=== PATIENT | female | born 1940 | race Caucasian/White ===

== ENCOUNTER 2017-10-24 10:14 | Outpatient (CLI) | payer MEDICARE, OTHER | END 2017-10-24 10:15 | disposition home or self-care (01) | LOC: BICMAMMO 10:14 | PROVIDERS: ATTEND Internal Medicine Hematology & Oncology | DX: Z12.31 Encounter for screening mammogram for malignant neoplasm of breast (principal); Z85.3 Personal history of malignant neoplasm of breast | CPT/HCPCS: 77063; 77067 ==

== ENCOUNTER 2018-07-05 08:56 | Day surgery (SDC) | payer MEDICARE, OTHER ==
[2018-07-04 11:30] VITALS: BMI 39.1
[2018-07-05] MEDS ORDERED: Ketamine 50 MG/ML (10ML VIAL) ONE (09:03)
[2018-07-05 09:41] LABS: #Eosinphils 0.2 thou/uL (0.0-0.7); #Lymphocytes 1.5 thou/uL (1.20-3.40); #Monocytes 0.5 thou/uL (0.11-0.59); #Neutrophils 2.5 thou/uL (1.40-6.50); %Basophils 0.8 % (0.0-1.0); %Monocytes 10.7 % (0.0-10.0); %Neutrophils 53.6 % (42.0-75.0); Hemoglobin 13.8 g/dL (12.0-16.0); Mean Corpuscular HGB CONC 32.8 g/dL (32.0-36.0); Mean Corpuscular Hemoglobin 31.2 pg (27.0-31.0); Mean Corpuscular Volume 95.1 fL (78.0-98.0); Mean Platelet Volume 7.5 fL (7.4-10.4); Platelet Count 208 thou/uL (130-400); RBC Distribution Width 13.7 % (11.5-14.5); Red Blood Cell (RBC) Count 4.42 mill/uL (4.20-5.40); White Blood Cell (WBC) Count 4.7 thou/uL (4.8-10.8)
[2018-07-05 10:01] LABS: Anion Gap 12 mmol/L (10-20); BUN (Urea Nitrogen) 26 mg/dL (9.8-20.1); Calc. Creatinine Clearance 45 mL/min (70-130); Calcium 9.5 mg/dL (7.8-10.44); Carbon Dioxide 29 mmol/L (23-31); Chloride 98 mmol/L (98-107); Estimated GFR-MDRD 26; Glucose 111 mg/dL (83-110); Sodium 135 mmol/L (136-145)
[2018-07-05] MEDS ORDERED: PROPOFOL 200 MG/20 ML VIAL ONE (16:17)
--- NOTE | 2018-07-06 07:34 | ECHO ---
CARDIOLOGY PROCEDURE NOTE: Date: 07/05/18 PROCEDURE: Transesophageal echocardiogram. INDICATION FOR PROCEDURE: 78-year-old female with history of cardiomyopathy. Status post AICD implant. She has been followed on a routine basis. She also has paroxysmal atrial fibrillation. She has been placed on amiodarone and Xarelto. She was advised to undergo a transesophageal echocardiogram, as well as electrical cardiover akhil of her atrial fibrillation. DESCRIPTION OF PROCEDURE: The patient was taken to the recovery area, where she underwent the procedure today without difficult ies or complications. IMPRESSION: 1. Moderate decreased in LV systolic function. Ejection fraction 35-40%. 2. Left atrial dilatation. 3. No evidence of left atrial or left atrial appendage thrombus. 4. Mild to moderate mitral valve regurgitation. 5. Mild tricuspid valve regurgitation. 6. Structurally normal aortic valve. 7. Pacemaker leads noted in right chambers without evidence of thrombus.
--- NOTE | 2018-07-06 07:35 | OP ---
ELECTRICAL CARDIOVERSION: Date: 07/05/18 The patient was electrically cardioverted successfully from her atrial fibrillation back to sinus rhy th with atrial pacing and ventricular pacing. She was cardioverted through the device with 35 joules . There were no complications or difficulties encountered. She was given short-acting propofol for th e procedure and no difficulties or complications were encountered.
--- NOTE | 2018-07-06 07:44 | DIS ---
ADMITTING DIAGNOSIS: 1. Atrial fibrillation. 2. Cardiomyopathy. 3. Status post AICD implant. 4. Hypertension. 5. Diabetes. DISCHARGE DIAGNOSIS: 1. Atrial fibrillation. 2. Cardiomyopathy. 3. Status post AICD implant. 4. Hypertension. 5. Diabetes. 6. Underwent successful transesophageal echocardiogram and electrical cardioversion of her atrial fi brillation back to a sinus rhythm. DISCHARGE MEDICATIONS: Aspirin 81 mg q.d. Coreg 25 mg bid. Lasix as needed, 40 mg q.d. Levothyroxine 75 mcg q.d. Lisinopril 5 mg q.d. Potassium 20 mEq q.d. Xarelto 20 mg q.d. Spironolactone 12.5 mg q.d. Amiodarone 100 mg q.d. Her follow-up will be with tube coremaker as per their orders. I will also see her back in the [facility] in the next 1-2 months. SUMMARY: This unfortunate elderly female with a history of cardiomyopathy and undergone AICD implant in the [facility], presented to [facility] and was found to have atrial fibrillation with congestive heart failure symptoms. She was advised to undergo a transesophageal echocardiogram and if no evidence of t hrombus, be converted from her atrial fibrillation back to sinus rhythm. Due to her history of shortn ess of breath and congestive heart failure symptoms and decreasing ejection fraction during the proce dure today, she was found to have moderately dilated left atrial of more than 5 cm today but had good flow into the left atrial fibrillation. There was no left atrial or left atrial appendage thrombus a nd ejection fraction was about 35-40%. She underwent successful cardioversion after a JAYSON with 35 isiah les via the AICD device. There were no complications or difficulties encountered. We will see her annabelle k as noted above.
== END 2018-07-05 11:00 | disposition home or self-care (01) ==
LOC: CCL 08:56
PROVIDERS: ATTEND Internal Medicine Cardiovascular Disease
PROC: 5A2204Z Restoration of Cardiac Rhythm, Single (ICD-10-PCS; principal; 2018-07-05)
PROC: B24BZZ4 Ultrasonography of Heart with Aorta, Transesophageal (ICD-10-PCS; 2018-07-05)
DX: I48.0 Paroxysmal atrial fibrillation (principal); I42.8 Other cardiomyopathies; I11.0 Hypertensive heart disease with heart failure; I50.20 Unspecified systolic (congestive) heart failure; E03.9 Hypothyroidism, unspecified; E11.9 Type 2 diabetes mellitus without complications; I08.1 Rheumatic disorders of both mitral and tricuspid valves; Z79.82 Long term (current) use of aspirin; Z79.899 Other long term (current) drug therapy; Z91.048 Other nonmedicinal substance allergy status; Z88.7 Allergy status to serum and vaccine; Z95.810 Presence of automatic (implantable) cardiac defibrillator; Z79.01 Long term (current) use of anticoagulants
CPT/HCPCS: 80048; 85025; 92960; 93312; J2704

== ENCOUNTER 2019-01-11 08:54 | Outpatient (CLI) | payer MEDICARE, OTHER ==
--- NOTE | 2019-01-11 09:29 | MMO ---
Bilateral MAMMO Bilat Screen [facility]. CLINICAL HISTORY: Patient is 78 years old and is seen for screening. The patient has no family history of breast cancer. The patient has a history of left Excisional Biopsy in 2009 - benign - Removed milk duct in his office, right Mastectomy in January, and right Ultrasound Guided Core Biopsy in August, - malignant. VIEWS: The views performed were: left craniocaudal with tomosynthesis and left mediolateral oblique with tomosynthesis. FILMS COMPARED: The present examination has been compared to prior imaging studies performed at [facility] on 01/03/2014, 01/11/2015, 09/02/2016 and 10/24/2017. This study has been interpreted with the assistance of computer-aided detection. MAMMOGRAM FINDINGS: There are scattered fibroglandular densities. There is a stable intramammary lymph node seen in the left breast. There are no suspicious masses, calcifications or areas of architectural distortion. There are no suspicious masses, suspicious calcifications, or new areas of architectural distortion. IMPRESSION: THERE IS NO MAMMOGRAPHIC EVIDENCE OF MALIGNANCY. A ROUTINE FOLLOW-UP MAMMOGRAM IN 1 YEAR IS RECOMMENDED. THE RESULTS OF THIS EXAM WERE SENT TO THE PATIENT. ACR BI-RADS Category 2 - Benign finding MAMMOGRAPHY NOTE: 1. A negative mammogram report should not delay a biopsy if a dominant of clinically suspicious mass is present. 2. Approximately 10% to 15% of breast cancers are not detected by mammography. 3. Adenosis and dense breasts may obscure an underlying neoplasm. Reported by: DANDRE TOLLIVER MD Electonically Signed: [id number]
== END 2019-01-11 08:55 | disposition home or self-care (01) ==
LOC: BICMAMMO 08:54
PROVIDERS: ATTEND Internal Medicine Hematology & Oncology
DX: Z12.31 Encounter for screening mammogram for malignant neoplasm of breast (principal); Z91.89 Other specified personal risk factors, not elsewhere classified; Z90.11 Acquired absence of right breast and nipple
CPT/HCPCS: 77063; 77067

== ENCOUNTER 2019-10-24 07:34 | Outpatient (CLI) | payer MEDICARE, OTHER ==
[2019-10-24 14:17] LABS: #Eosinphils 0.2 thou/uL (0.0-0.7); #Lymphocytes 1.1 thou/uL (1.20-3.40); #Monocytes 0.4 thou/uL (0.11-0.59); #Neutrophils 2.4 thou/uL (1.40-6.50); %Monocytes 9.6 % (0.0-10.0); %Neutrophils 59.4 % (42.0-75.0); Hemoglobin 9.7 g/dL (12.0-16.0); Mean Corpuscular HGB CONC 30.4 g/dL (32.0-36.0); Mean Corpuscular Volume 75.7 fL (78.0-98.0); Mean Platelet Volume 8.4 fL (7.4-10.4); Platelet Count 283 thou/uL (130-400); RBC Distribution Width 17.3 % (11.5-14.5); Red Blood Cell (RBC) Count 4.23 mill/uL (4.20-5.40)
[2019-10-24 14:27] LABS: INR-International Normal Ratio 2.7; PTT 32.9 sec (22.9-36.1); Prothrombin Time 28.7 sec (12.0-14.7)
[2019-10-24 14:43] LABS: Anion Gap 11 mmol/L (10-20); BUN (Urea Nitrogen) 24 mg/dL (9.8-20.1); Calc. Creatinine Clearance 0 mL/min (70-130); Calcium 8.7 mg/dL (7.8-10.44); Carbon Dioxide 29 mmol/L (23-31); Chloride 101 mmol/L (98-107); Estimated GFR-MDRD 34; Glucose 119 mg/dL (83-110); Potassium 3.7 mmol/L (3.5-5.1); Sodium 137 mmol/L (136-145)
[2019-10-25 13:34] LABS: SARS-CoV-2 MS2 Positive; SARS-CoV-2 N Gene Negative; SARS-CoV-2 S Gene Negative; SARS-CoV-2 by NAA Not Detected (NotDetected); SARS-CoV-2 orf1ab Negative
== END 2019-10-24 07:35 | disposition home or self-care (01) ==
LOC: LABBT 07:34
PROVIDERS: ATTEND Internal Medicine
DX: Z01.812 Encounter for preprocedural laboratory examination (principal); Z11.59 Encounter for screening for other viral diseases; I48.0 Paroxysmal atrial fibrillation
CPT/HCPCS: 80048; 85025; 85610; 85730; U0003; 87635

== ENCOUNTER 2021-10-16 13:17 | Outpatient (CLI) | payer MEDICARE, OTHER ==
[2021-10-16 14:50] LABS: Hemoglobin 12.9 g/dL (12.0-15.5); Mean Corpuscular HGB CONC 32.7 g/dL (32.0-36.0); Mean Corpuscular Hemoglobin 29.1 pg (27.0-33.0); Mean Corpuscular Volume 88.9 fl (81.6-98.3); Mean Platelet Volume 10.3 fl (7.4-10.4); Platelet Count 219 10x3/uL (150-450); RBC Distribution Width 15.9 % (11.5-14.5); Red Blood Cell (RBC) Count 4.43 10x6/uL (3.90-5.03)
[2021-10-16 15:26] LABS: Anion Gap 17 mmol/L (10-20); BUN (Urea Nitrogen) 18 mg/dL (9.8-20.1); Calc. Creatinine Clearance 0 mL/min (70-130); Calcium 8.9 mg/dL (7.8-10.44); Carbon Dioxide 26 mmol/L (23-31); Chloride 104 mmol/L (98-107); Estimated GFR 35; Glucose 110 mg/dL (83-110); Potassium 3.8 mmol/L (3.5-5.1); Sodium 143 mmol/L (136-145)
[2021-10-16 15:30] LABS: INR-International Normal Ratio 2.2; PTT 32.4 sec (22.0-33.0); Prothrombin Time 23.2 sec (9.5-12.1)
== END 2021-10-16 13:18 | disposition home or self-care (01) ==
LOC: LABBT 13:17
PROVIDERS: ATTEND Internal Medicine Cardiovascular Disease
DX: Z01.812 Encounter for preprocedural laboratory examination (principal); I48.0 Paroxysmal atrial fibrillation; Z20.822 Contact with and (suspected) exposure to COVID-19
CPT/HCPCS: 80048; 85027; 85610; 85730; 87811

== ENCOUNTER 2021-10-21 10:44 | Day surgery (SDC) | payer MEDICARE, OTHER ==
[2021-10-20 09:02] VITALS: BMI 29.1
[2021-10-21] MEDS ORDERED: Ketamine 50 MG/ML (10ML VIAL) ONE (13:13)
[2021-10-21] MEDS ORDERED: PROPOFOL 200 MG/20 ML VIAL ONE (13:27)
[2021-10-21] MEDS ORDERED: Hydrocortisone 1% Cream 30 GM TUBE ONE (14:12)
== END 2021-10-21 15:00 | disposition home or self-care (01) ==
LOC: SDC 10:44
PROVIDERS: ATTEND Internal Medicine Cardiovascular Disease
PROC: B246ZZ4 Ultrasonography of Right and Left Heart, Transesophageal (ICD-10-PCS; principal; 2021-10-21)
PROC: 5A2204Z Restoration of Cardiac Rhythm, Single (ICD-10-PCS; 2021-10-21)
DX: I48.19 Other persistent atrial fibrillation (principal); I50.9 Heart failure, unspecified; I25.5 Ischemic cardiomyopathy; I08.1 Rheumatic disorders of both mitral and tricuspid valves; I70.0 Atherosclerosis of aorta; Z79.01 Long term (current) use of anticoagulants; Z79.890 Hormone replacement therapy; Z79.899 Other long term (current) drug therapy; Z95.1 Presence of aortocoronary bypass graft; Z95.810 Presence of automatic (implantable) cardiac defibrillator
CPT/HCPCS: 92960; 93312; J2704

== ENCOUNTER 2023-03-03 14:29 | Outpatient (CLI) | payer MEDICARE, OTHER | END 2023-03-03 14:30 | disposition home or self-care (01) | LOC: RAD 14:29 | PROVIDERS: ATTEND Internal Medicine Cardiovascular Disease | DX: I48.0 Paroxysmal atrial fibrillation (principal) | CPT/HCPCS: 36415; 71046; 85610 ==

== ENCOUNTER 2024-10-14 10:53 | Inpatient (IN) | payer MEDICARE, OTHER ==
[2024-10-14 11:51] LABS: #Basophils 0.10 10x3/uL (0.0-0.2); #Eosinophils 0.10 10x3/uL (0.0-0.7); #Monocytes 0.63 10x3/uL (0.11-0.59); #Neutrophils 8.96 10x3/uL (1.40-6.50); %Basophils 0.9 % (0.0-1.0); %Eosinophils 0.9 % (0.0-10.0); %Lymphocytes 8.6 % (21.0-51.0); %Monocytes 5.8 % (0.0-10.0); %Neutrophils 82.2 % (42.0-75.0); Hematocrit 44.8 % (36.0-47.0); Hemoglobin 14.7 g/dL (12.0-16.0); Mean Corpuscular Hemoglobin 32.0 pg (27.0-31.0); Mean Corpuscular Volume 97.6 fL (78.0-98.0); Platelet Count 409 10x3/uL (130-400); Red Blood Cell (RBC) Count 4.59 mill/uL (4.20-5.40); White Blood Cell (WBC) Count 10.91 10x3/uL (4.8-10.8)
[2024-10-14 12:09] LABS: ALT (SGPT) 78 U/L (Less than 34); AST (SGOT) 132 U/L (11-34); Albumin 2.3 g/dL (3.1-4.5); Alkaline Phosphatase 79 U/L (40-110); Anion Gap 14 mmol/L (10-20); BUN (Urea Nitrogen) 22 mg/dL (9.8-20.1); Bilirubin, Total 1.6 mg/dL (0.3-1.2); Calc. Creatinine Clearance 0 mL/min (70-130); Calcium 7.9 mg/dL (7.8-10.44); Carbon Dioxide 20 mmol/L (23-31); Chloride 107 mmol/L (98-107); Globulin 3.5 g/dL (2.4-3.5); Glucose 170 mg/dL (83-110); Lipase 68 U/L (8-78); Magnesium 1.9 mg/dL (1.6-2.6); Potassium 4.7 mmol/L (3.5-5.1); Sodium 136 mmol/L (136-145)
[2024-10-14 13:12] LABS: Free T4 (Free Thyroxine) 1.16 ng/dL (0.70-1.48)
[2024-10-14 13:19] LABS: CAUTI Indications for Culture Pelvic or flank pain; Glucose, Urine (Dipstick) Normal (Negative); Leukocyte Negative Leu/uL (Negative); Protein, Urine (Dipstick) Negative (Neg-Trace); RBC/HPF 0-3 HPF (0-3); Specific Gravity, Urine 1.010 (1.002-1.036); WBC/HPF 0-3 HPF (0-3)
[2024-10-14 13:20] LABS: Bacteria/HPF 1+ HPF (None Seen)
[2024-10-14 13:21] LABS: Urine Culture Reflex No No
[2024-10-14] MEDS ORDERED: levETIRAcetam 500 MG (5 mL) VIAL ONE (14:08)
[2024-10-14] MEDS ORDERED: Glucagon 1 MG/ML KIT IM PRN (16:13)
[2024-10-14] MEDS ORDERED: Dextrose 50% Abboject 50 ML SYRINGE SLOW IVP PRN (16:13)
[2024-10-14] MEDS: levETIRAcetam 500 MG (5 mL) VIAL SLOW IVP SCH (20:32)
[2024-10-14] MEDS: Sacubitril 24MG/Valsartan 26 MG TAB PO SCH (20:33)
[2024-10-14 22:18] VITALS: BMI 27.9
[2024-10-15] MEDS: Enoxaparin 40 MG (0.4 mL) SYRINGE SC SCH (08:47)
[2024-10-15] MEDS ORDERED: levETIRAcetam 500 MG TAB PO SCH (09:00)
[2024-10-15 09:07] LABS: ALT (SGPT) 70 U/L (Less than 34); AST (SGOT) 104 U/L (11-34); Albumin 2.3 g/dL (3.1-4.5); Alkaline Phosphatase 80 U/L (40-110); Anion Gap 14 mmol/L (10-20); BUN (Urea Nitrogen) 16 mg/dL (9.8-20.1); Bilirubin, Total 1.7 mg/dL (0.3-1.2); Calc. Creatinine Clearance 63 mL/min (70-130); Calcium 8.0 mg/dL (7.8-10.44); Carbon Dioxide 20 mmol/L (23-31); Chloride 108 mmol/L (98-107); Globulin 3.6 g/dL (2.4-3.5); Glucose 79 mg/dL (83-110); Potassium 4.6 mmol/L (3.5-5.1); Sodium 137 mmol/L (136-145)
[2024-10-15] MEDS: Aspirin 81 mg Enteric Coated Tablet PO SCH (09:07)
[2024-10-15] MEDS: MULTIVIT/IRON SULF/FOLIC ACID 1 EACH TAB PO SCH (09:07)
[2024-10-15] MEDS: Amiodarone 200 MG TAB PO SCH (09:07)
[2024-10-15] MEDS: Pantoprazole 40 MG DR.TAB PO SCH (09:08)
[2024-10-15 09:19] LABS: Hematocrit 46.1 % (36.0-47.0); Hemoglobin 14.8 g/dL (12.0-16.0); Mean Corpuscular Hemoglobin 31.4 pg (27.0-31.0); Mean Corpuscular Volume 97.9 fL (78.0-98.0); Platelet Count 303 10x3/uL (130-400); Red Blood Cell (RBC) Count 4.71 mill/uL (4.20-5.40); White Blood Cell (WBC) Count 7.38 10x3/uL (4.8-10.8)
[2024-10-15 09:42] LABS: #Basophils 0.10 10x3/uL (0.0-0.2); #Eosinophils 0.18 10x3/uL (0.0-0.7); #Monocytes 0.65 10x3/uL (0.11-0.59); #Neutrophils 5.38 10x3/uL (1.40-6.50); %Basophils 1.4 % (0.0-1.0); %Eosinophils 2.4 % (0.0-10.0); %Lymphocytes 13.7 % (21.0-51.0); %Monocytes 8.8 % (0.0-10.0); %Neutrophils 72.9 % (42.0-75.0)
[2024-10-15 09:57] LABS: Anisocytosis SLIGHT = 6-15 cells HPF (0-5); Burr Cells MODERATE= 6-15 cells HPF (0-1); Giant Platelets 0.9 % (0-5); Platelet Adequacy Comment Platelets Normal; Polychromasia SLIGHT = 2-3 cells HPF (0-2); Smudge Cells 4.3 %; Toxic Granulation SLIGHT
[2024-10-16 04:23] LABS: #Basophils 0.09 10x3/uL (0.0-0.2); #Eosinophils 0.13 10x3/uL (0.0-0.7); #Monocytes 0.71 10x3/uL (0.11-0.59); #Neutrophils 4.06 10x3/uL (1.40-6.50); %Basophils 1.5 % (0.0-1.0); %Eosinophils 2.1 % (0.0-10.0); %Lymphocytes 18.3 % (21.0-51.0); %Monocytes 11.5 % (0.0-10.0); %Neutrophils 65.6 % (42.0-75.0); Hematocrit 39.9 % (36.0-47.0); Hemoglobin 13.0 g/dL (12.0-16.0); Mean Corpuscular Hemoglobin 31.5 pg (27.0-31.0); Mean Corpuscular Volume 96.6 fL (78.0-98.0); Platelet Count 359 10x3/uL (130-400); Red Blood Cell (RBC) Count 4.13 mill/uL (4.20-5.40); White Blood Cell (WBC) Count 6.18 10x3/uL (4.8-10.8)
[2024-10-16 05:16] LABS: ALT (SGPT) 59 U/L (Less than 34); AST (SGOT) 98 U/L (11-34); Albumin 1.9 g/dL (3.1-4.5); Alkaline Phosphatase 68 U/L (40-110); Anion Gap 11 mmol/L (10-20); BUN (Urea Nitrogen) 15 mg/dL (9.8-20.1); Bilirubin, Total 1.4 mg/dL (0.3-1.2); Calc. Creatinine Clearance 71 mL/min (70-130); Calcium 7.9 mg/dL (7.8-10.44); Carbon Dioxide 17 mmol/L (23-31); Chloride 112 mmol/L (98-107); Globulin 3.0 g/dL (2.4-3.5); Glucose 73 mg/dL (83-110); Potassium 4.0 mmol/L (3.5-5.1); Sodium 136 mmol/L (136-145)
[2024-10-16] MEDS ORDERED: Bupivacaine 0.25% HCL 30 ML VIAL ONE (11:49)
[2024-10-16] MEDS ORDERED: Lidocaine 1% PF 5 ML VIAL ONE (12:25)
[2024-10-16] MEDS ORDERED: PROPOFOL 20 ML ONE (12:25)
[2024-10-16] MEDS ORDERED: Rocuronium Bromide 10 MG/ML (10ML VIAL) ONE (12:38)
[2024-10-16] MEDS ORDERED: PHENYLEPHRINE-NS 100 MCG/ML 10 ML SYRINGE ONE (13:16)
[2024-10-16] MEDS ORDERED: Ondansetron PF 4 MG/2 ML Vial ONE (13:35)
[2024-10-16] MEDS ORDERED: SUGAMMADEX SODIUM 200 MG/2 ML VIAL ONE (13:52)
[2024-10-16] MEDS: levETIRAcetam 500 MG TAB PO SCH (21:32)
[2024-10-17 07:04] LABS: #Basophils Less than 0.03 10x3/uL (0.0-0.2); #Eosinophils Less than 0.03 10x3/uL (0.0-0.7); #Monocytes 0.17 10x3/uL (0.11-0.59); #Neutrophils 7.52 10x3/uL (1.40-6.50); %Basophils 0.1 % (0.0-1.0); %Eosinophils 0.0 % (0.0-10.0); %Lymphocytes 8.5 % (21.0-51.0); %Monocytes 2.0 % (0.0-10.0); %Neutrophils 88.6 % (42.0-75.0); Hematocrit 42.1 % (36.0-47.0); Hemoglobin 13.7 g/dL (12.0-16.0); Mean Corpuscular Hemoglobin 31.6 pg (27.0-31.0); Mean Corpuscular Volume 97.0 fL (78.0-98.0); Platelet Count 395 10x3/uL (130-400); Red Blood Cell (RBC) Count 4.34 mill/uL (4.20-5.40); White Blood Cell (WBC) Count 8.49 10x3/uL (4.8-10.8)
[2024-10-17 07:13] LABS: ALT (SGPT) 73 U/L (Less than 34); AST (SGOT) 121 U/L (11-34); Albumin 2.1 g/dL (3.1-4.5); Alkaline Phosphatase 83 U/L (40-110); Anion Gap 14 mmol/L (10-20); BUN (Urea Nitrogen) 17 mg/dL (9.8-20.1); Bilirubin, Total 1.3 mg/dL (0.3-1.2); Calc. Creatinine Clearance 77 mL/min (70-130); Calcium 7.9 mg/dL (7.8-10.44); Carbon Dioxide 17 mmol/L (23-31); Chloride 109 mmol/L (98-107); Globulin 3.2 g/dL (2.4-3.5); Glucose 136 mg/dL (83-110); Potassium 4.5 mmol/L (3.5-5.1); Sodium 135 mmol/L (136-145)
[2024-10-17] MEDS: Enoxaparin 40 MG (0.4 mL) SYRINGE SC SCH (09:59)
[2024-10-17 11:23] LABS: Hep A IgM AB NONREACTIVE (NonReactive); Hep A IgM S/CO 0.13 S/CO (0-0.79); Hep B Core IgM Index 0.09 S/CO (0-0.79); Hep B Surf Ag NONREACTIVE S/CO (NonReactive); Hep C IgG Ab NONREACTIVE S/CO (NonReactive); Hep C Index 0.13 S/CO (0-0.79)
[2024-10-17] MEDS ORDERED: BENZOCAINE/MENTHOL/ZINC CHLOR 5.1 GM TUBE TOP PRN (12:52)
[2024-10-17] MEDS: MAGIC MOUTHWASH 10 ML UDCUP SSP SCH ×2 (13:46)
[2024-10-18 04:37] LABS: #Basophils 0.04 10x3/uL (0.0-0.2); #Eosinophils 0.05 10x3/uL (0.0-0.7); #Monocytes 0.57 10x3/uL (0.11-0.59); #Neutrophils 4.53 10x3/uL (1.40-6.50); %Basophils 0.6 % (0.0-1.0); %Eosinophils 0.8 % (0.0-10.0); %Lymphocytes 17.6 % (21.0-51.0); %Monocytes 9.0 % (0.0-10.0); %Neutrophils 71.2 % (42.0-75.0); Hematocrit 43.9 % (36.0-47.0); Hemoglobin 14.1 g/dL (12.0-16.0); Mean Corpuscular Hemoglobin 31.4 pg (27.0-31.0); Mean Corpuscular Volume 97.8 fL (78.0-98.0); Platelet Count 429 10x3/uL (130-400); Red Blood Cell (RBC) Count 4.49 mill/uL (4.20-5.40); White Blood Cell (WBC) Count 6.36 10x3/uL (4.8-10.8)
[2024-10-18 04:53] LABS: ALT (SGPT) 81 U/L (Less than 34); AST (SGOT) 141 U/L (11-34); Albumin 2.2 g/dL (3.1-4.5); Alkaline Phosphatase 87 U/L (40-110); Anion Gap 13 mmol/L (10-20); BUN (Urea Nitrogen) 24 mg/dL (9.8-20.1); Bilirubin, Total 1.4 mg/dL (0.3-1.2); Calc. Creatinine Clearance 64 mL/min (70-130); Calcium 8.2 mg/dL (7.8-10.44); Carbon Dioxide 21 mmol/L (23-31); Chloride 107 mmol/L (98-107); Globulin 3.4 g/dL (2.4-3.5); Glucose 95 mg/dL (83-110); Potassium 4.0 mmol/L (3.5-5.1); Sodium 137 mmol/L (136-145)
[2024-10-18 13:40] LABS: HIV (1/2) Antibody/Antigen NONREACTIVE (NonReactive); HIV 1/2 INDEX 0.07 S/CO (<1.00)
[2024-10-18 14:10] LABS: Iron 61 ug/dL (50-170); Iron Binding Capacity, Total 170 mcg/dL (265-497)
[2024-10-18 15:18] LABS: Syphilis Antibody Index 0.11 S/CO (<1.00 Non-Reactive)
[2024-10-19 04:13] LABS: #Basophils 0.09 10x3/uL (0.0-0.2); #Eosinophils 0.12 10x3/uL (0.0-0.7); #Monocytes 0.63 10x3/uL (0.11-0.59); #Neutrophils 3.72 10x3/uL (1.40-6.50); %Basophils 1.5 % (0.0-1.0); %Eosinophils 2.0 % (0.0-10.0); %Lymphocytes 23.0 % (21.0-51.0); %Monocytes 10.5 % (0.0-10.0); %Neutrophils 62.2 % (42.0-75.0); Hematocrit 45.0 % (36.0-47.0); Hemoglobin 14.3 g/dL (12.0-16.0); Mean Corpuscular Hemoglobin 31.4 pg (27.0-31.0); Mean Corpuscular Volume 98.7 fL (78.0-98.0); Platelet Count 375 10x3/uL (130-400); Red Blood Cell (RBC) Count 4.56 mill/uL (4.20-5.40); White Blood Cell (WBC) Count 5.99 10x3/uL (4.8-10.8)
[2024-10-19 04:29] LABS: ALT (SGPT) 79 U/L (Less than 34); AST (SGOT) 114 U/L (11-34); Albumin 2.3 g/dL (3.1-4.5); Alkaline Phosphatase 93 U/L (40-110); Anion Gap 13 mmol/L (10-20); BUN (Urea Nitrogen) 16 mg/dL (9.8-20.1); Bilirubin, Total 1.4 mg/dL (0.3-1.2); Calc. Creatinine Clearance 68 mL/min (70-130); Calcium 8.2 mg/dL (7.8-10.44); Carbon Dioxide 20 mmol/L (23-31); Chloride 106 mmol/L (98-107); Globulin 3.4 g/dL (2.4-3.5); Glucose 81 mg/dL (83-110); Potassium 3.5 mmol/L (3.5-5.1); Sodium 135 mmol/L (136-145)
[2024-10-19] MEDS: Cephalexin 250 MG CAP PO SCH (17:28)
[2024-10-20 04:11] LABS: #Basophils 0.09 10x3/uL (0.0-0.2); #Eosinophils 0.12 10x3/uL (0.0-0.7); #Monocytes 0.55 10x3/uL (0.11-0.59); #Neutrophils 2.61 10x3/uL (1.40-6.50); %Basophils 2.0 % (0.0-1.0); %Eosinophils 2.7 % (0.0-10.0); %Lymphocytes 22.4 % (21.0-51.0); %Monocytes 12.5 % (0.0-10.0); %Neutrophils 59.3 % (42.0-75.0); Hematocrit 42.9 % (36.0-47.0); Hemoglobin 14.2 g/dL (12.0-16.0); Mean Corpuscular Hemoglobin 31.3 pg (27.0-31.0); Mean Corpuscular Volume 94.7 fL (78.0-98.0); Platelet Count 338 10x3/uL (130-400); Red Blood Cell (RBC) Count 4.53 mill/uL (4.20-5.40); White Blood Cell (WBC) Count 4.41 10x3/uL (4.8-10.8)
[2024-10-20 04:31] LABS: ALT (SGPT) 72 U/L (Less than 34); AST (SGOT) 101 U/L (11-34); Albumin 2.2 g/dL (3.1-4.5); Alkaline Phosphatase 90 U/L (40-110); Anion Gap 13 mmol/L (10-20); BUN (Urea Nitrogen) 11 mg/dL (9.8-20.1); Bilirubin, Total 1.3 mg/dL (0.3-1.2); Calc. Creatinine Clearance 89 mL/min (70-130); Calcium 8.2 mg/dL (7.8-10.44); Carbon Dioxide 20 mmol/L (23-31); Chloride 109 mmol/L (98-107); Globulin 3.3 g/dL (2.4-3.5); Glucose 85 mg/dL (83-110); Potassium 3.7 mmol/L (3.5-5.1); Sodium 138 mmol/L (136-145)
[2024-10-20 10:32] LABS: Free T4 (Free Thyroxine) 1.2 ng/dL (0.70-1.48); Thyroid Stimulating Hormone 12.6255 uIU/mL (0.35-4.94)
[2024-10-21 04:50] LABS: #Basophils 0.07 10x3/uL (0.0-0.2); #Eosinophils 0.15 10x3/uL (0.0-0.7); #Monocytes 0.45 10x3/uL (0.11-0.59); #Neutrophils 1.66 10x3/uL (1.40-6.50); %Basophils 2.0 % (0.0-1.0); %Eosinophils 4.4 % (0.0-10.0); %Lymphocytes 30.7 % (21.0-51.0); %Monocytes 13.2 % (0.0-10.0); %Neutrophils 48.5 % (42.0-75.0); Hematocrit 39.2 % (36.0-47.0); Hemoglobin 12.9 g/dL (12.0-16.0); Mean Corpuscular Hemoglobin 31.9 pg (27.0-31.0); Mean Corpuscular Volume 97.0 fL (78.0-98.0); Platelet Count 301 10x3/uL (130-400); Red Blood Cell (RBC) Count 4.04 mill/uL (4.20-5.40); White Blood Cell (WBC) Count 3.42 10x3/uL (4.8-10.8)
[2024-10-21 05:15] LABS: ALT (SGPT) 67 U/L (Less than 34); AST (SGOT) 92 U/L (11-34); Albumin 2.1 g/dL (3.1-4.5); Alkaline Phosphatase 81 U/L (40-110); Anion Gap 10 mmol/L (10-20); BUN (Urea Nitrogen) 11 mg/dL (9.8-20.1); Bilirubin, Total 1.0 mg/dL (0.3-1.2); Calc. Creatinine Clearance 95 mL/min (70-130); Calcium 7.9 mg/dL (7.8-10.44); Carbon Dioxide 23 mmol/L (23-31); Chloride 109 mmol/L (98-107); Globulin 2.9 g/dL (2.4-3.5); Glucose 83 mg/dL (83-110); Potassium 3.7 mmol/L (3.5-5.1); Sodium 138 mmol/L (136-145)
[2024-10-21 05:25] LABS: Free T4 (Free Thyroxine) 1.18 ng/dL (0.70-1.48)
[2024-10-22 05:07] LABS: #Basophils 0.06 10x3/uL (0.0-0.2); #Eosinophils 0.11 10x3/uL (0.0-0.7); #Monocytes 0.55 10x3/uL (0.11-0.59); #Neutrophils 3.61 10x3/uL (1.40-6.50); %Basophils 1.1 % (0.0-1.0); %Eosinophils 2.0 % (0.0-10.0); %Lymphocytes 19.3 % (21.0-51.0); %Monocytes 10.2 % (0.0-10.0); %Neutrophils 66.8 % (42.0-75.0); Hematocrit 44.6 % (36.0-47.0); Hemoglobin 14.5 g/dL (12.0-16.0); Mean Corpuscular Hemoglobin 31.3 pg (27.0-31.0); Mean Corpuscular Volume 96.3 fL (78.0-98.0); Platelet Count 311 10x3/uL (130-400); Red Blood Cell (RBC) Count 4.63 mill/uL (4.20-5.40); White Blood Cell (WBC) Count 5.40 10x3/uL (4.8-10.8)
[2024-10-22 05:26] LABS: ALT (SGPT) 74 U/L (Less than 34); AST (SGOT) 102 U/L (11-34); Albumin 2.4 g/dL (3.1-4.5); Alkaline Phosphatase 96 U/L (40-110); Anion Gap 12 mmol/L (10-20); BUN (Urea Nitrogen) 11 mg/dL (9.8-20.1); Bilirubin, Total 1.2 mg/dL (0.3-1.2); Calc. Creatinine Clearance 90 mL/min (70-130); Calcium 8.3 mg/dL (7.8-10.44); Carbon Dioxide 26 mmol/L (23-31); Chloride 105 mmol/L (98-107); Globulin 3.4 g/dL (2.4-3.5); Glucose 86 mg/dL (83-110); Potassium 4.1 mmol/L (3.5-5.1); Sodium 139 mmol/L (136-145)
[2024-10-22] MEDS: levETIRAcetam 500 MG TAB PO SCH (09:43)
[2024-10-22] MEDS ORDERED: Melatonin 3 MG TAB PO SCH (20:45)
[2024-10-22] MEDS ORDERED: Melatonin 3 MG TAB PO PRN (20:56)
[2024-10-23] MEDS: Amoxicillin/Potassium Clav 875 MG TAB PO SCH (00:36)
[2024-10-23 04:12] LABS: #Basophils 0.09 10x3/uL (0.0-0.2); #Eosinophils 0.21 10x3/uL (0.0-0.7); #Monocytes 0.68 10x3/uL (0.11-0.59); #Neutrophils 3.29 10x3/uL (1.40-6.50); %Basophils 1.7 % (0.0-1.0); %Eosinophils 3.9 % (0.0-10.0); %Lymphocytes 20.0 % (21.0-51.0); %Monocytes 12.6 % (0.0-10.0); %Neutrophils 61.1 % (42.0-75.0); Hematocrit 40.5 % (36.0-47.0); Hemoglobin 13.4 g/dL (12.0-16.0); Mean Corpuscular Hemoglobin 31.2 pg (27.0-31.0); Mean Corpuscular Volume 94.2 fL (78.0-98.0); Platelet Count 228 10x3/uL (130-400); Red Blood Cell (RBC) Count 4.30 mill/uL (4.20-5.40); White Blood Cell (WBC) Count 5.39 10x3/uL (4.8-10.8)
[2024-10-23 04:25] LABS: ALT (SGPT) 58 U/L (Less than 34); AST (SGOT) 74 U/L (11-34); Albumin 2.1 g/dL (3.1-4.5); Alkaline Phosphatase 85 U/L (40-110); Anion Gap 10 mmol/L (10-20); BUN (Urea Nitrogen) 10 mg/dL (9.8-20.1); Bilirubin, Total 0.8 mg/dL (0.3-1.2); Calc. Creatinine Clearance 92 mL/min (70-130); Calcium 8.0 mg/dL (7.8-10.44); Carbon Dioxide 22 mmol/L (23-31); Chloride 108 mmol/L (98-107); Globulin 3.2 g/dL (2.4-3.5); Glucose 108 mg/dL (83-110); Potassium 3.6 mmol/L (3.5-5.1); Sodium 136 mmol/L (136-145)
[2024-10-24 04:06] LABS: #Basophils 0.07 10x3/uL (0.0-0.2); #Eosinophils 0.23 10x3/uL (0.0-0.7); #Monocytes 0.60 10x3/uL (0.11-0.59); #Neutrophils 2.32 10x3/uL (1.40-6.50); %Basophils 1.5 % (0.0-1.0); %Eosinophils 5.0 % (0.0-10.0); %Lymphocytes 29.3 % (21.0-51.0); %Monocytes 13.0 % (0.0-10.0); %Neutrophils 50.5 % (42.0-75.0); Hematocrit 38.0 % (36.0-47.0); Hemoglobin 12.6 g/dL (12.0-16.0); Mean Corpuscular Hemoglobin 31.5 pg (27.0-31.0); Mean Corpuscular Volume 95.0 fL (78.0-98.0); Platelet Count 220 10x3/uL (130-400); Red Blood Cell (RBC) Count 4.00 mill/uL (4.20-5.40); White Blood Cell (WBC) Count 4.60 10x3/uL (4.8-10.8)
[2024-10-24 04:11] LABS: ALT (SGPT) 53 U/L (Less than 34); AST (SGOT) 71 U/L (11-34); Albumin 2.0 g/dL (3.1-4.5); Alkaline Phosphatase 81 U/L (40-110); Anion Gap 10 mmol/L (10-20); BUN (Urea Nitrogen) 14 mg/dL (9.8-20.1); Bilirubin, Total 0.7 mg/dL (0.3-1.2); Calc. Creatinine Clearance 87 mL/min (70-130); Calcium 8.0 mg/dL (7.8-10.44); Carbon Dioxide 23 mmol/L (23-31); Chloride 108 mmol/L (98-107); Globulin 3.1 g/dL (2.4-3.5); Glucose 88 mg/dL (83-110); Potassium 3.8 mmol/L (3.5-5.1); Sodium 137 mmol/L (136-145)
[2024-10-24 10:21] VITALS: TEMP 97.7
[2024-10-24 11:50] VITALS: BMI 30.7
[2024-10-24 11:58] VITALS: BP 101/67
== END 2024-10-24 15:00 | DRG 40 ==
LOC: ERS 10:53 → 2SE 14:13
PROVIDERS: ADMIT Family Medicine; ATTEND Family Medicine
PROC: 0JB70ZZ Excision of Back Subcutaneous Tissue and Fascia, Open Approach (ICD-10-PCS; principal; 2024-10-14)
DX: R56.9 Unspecified convulsions (principal); G93.41 Metabolic encephalopathy; I50.22 Chronic systolic (congestive) heart failure; Z66 Do not resuscitate; L89.159 Pressure ulcer of sacral region, unspecified stage; E03.8 Other specified hypothyroidism; I48.91 Unspecified atrial fibrillation; I11.0 Hypertensive heart disease with heart failure; D72.829 Elevated white blood cell count, unspecified; E11.65 Type 2 diabetes mellitus with hyperglycemia; E80.6 Other disorders of bilirubin metabolism; I25.5 Ischemic cardiomyopathy; S00.512A Abrasion of oral cavity, initial encounter; I95.9 Hypotension, unspecified; Z79.899 Other long term (current) drug therapy
CPT/HCPCS: 36415; 36416; 51702; 70450; 70551; 71045; 76014; 76705; 80053; 80061; 80074; 81001; 82103; 82140; 82306; 82550; 82607; 82728; 82977; 83036; 83540; 83550; 83605; 83690; 83735; 84145; 84146; 84439; 84443; 84466; 84481; 85025; 86780; 87070; 87076; 87077; 87186; 87205; 87389; 93005; 96361; 96374; 97139; J0169; J0665; J1100; J1630; J1650; J1953; J2272; J2405; J2543; J2704; J3010; J7030; J7120

== ENCOUNTER 2024-11-13 18:43 | Emergency (ER) | payer MEDICARE, OTHER ==
[~2024-11-13 18:43] MED LIST: Iopamidol-370 76% 500 ML MDV (1 ML CHARGE) ONE
[2024-11-13] MEDS ORDERED: Lidocaine/Transparent Dressing 1 EACH KIT ONE (19:34)
[2024-11-13] MEDS ORDERED: Lidocaine 1% w/Epinephrine 1:100K 20 ML VIAL ONE (19:34)
[2024-11-13 20:41] LABS: #Basophils 0.05 10x3/uL (0.0-0.2); #Eosinophils 0.05 10x3/uL (0.0-0.7); #Monocytes 0.68 10x3/uL (0.11-0.59); #Neutrophils 6.34 10x3/uL (1.40-6.50); %Basophils 0.6 % (0.0-1.0); %Eosinophils 0.6 % (0.0-10.0); %Lymphocytes 12.0 % (21.0-51.0); %Monocytes 8.3 % (0.0-10.0); %Neutrophils 77.6 % (42.0-75.0); Hematocrit 35.2 % (36.0-47.0); Hemoglobin 11.9 g/dL (12.0-16.0); Mean Corpuscular Hemoglobin 31.2 pg (27.0-31.0); Mean Corpuscular Volume 92.1 fL (78.0-98.0); Platelet Count 275 10x3/uL (130-400); Red Blood Cell (RBC) Count 3.82 mill/uL (4.20-5.40); White Blood Cell (WBC) Count 8.17 10x3/uL (4.8-10.8)
[2024-11-13 20:59] LABS: ALT (SGPT) 23 U/L (Less than 34); AST (SGOT) 38 U/L (11-34); Albumin 2.2 g/dL (3.1-4.5); Alkaline Phosphatase 83 U/L (40-110); Anion Gap 13 mmol/L (10-20); BUN (Urea Nitrogen) 19 mg/dL (9.8-20.1); Bilirubin, Total 0.8 mg/dL (0.3-1.2); CK (CPK) 31 U/L (29-168); Calc. Creatinine Clearance 0 mL/min (70-130); Calcium 8.2 mg/dL (7.8-10.44); Carbon Dioxide 22 mmol/L (23-31); Chloride 106 mmol/L (98-107); Globulin 3.4 g/dL (2.4-3.5); Glucose 121 mg/dL (83-110); Potassium 4.4 mmol/L (3.5-5.1); Sodium 137 mmol/L (136-145)
[2024-11-13 21:10] LABS: INR-International Normal Ratio 1.3; PTT 32.2 sec (22.9-36.1); Prothrombin Time 16.5 sec (12.0-14.7)
== END 2024-11-13 23:55 | disposition home or self-care (01) ==
LOC: ERS 18:43
DX: S12.600A Unspecified displaced fracture of seventh cervical vertebra, initial encounter for closed fracture (principal); S22.32XA Fracture of one rib, left side, initial encounter for closed fracture; S81.812A Laceration without foreign body, left lower leg, initial encounter; I11.0 Hypertensive heart disease with heart failure; I50.9 Heart failure, unspecified; W18.30XA Fall on same level, unspecified, initial encounter; Z55.6 Problems related to health literacy
CPT/HCPCS: 12004; 70450; 71260; 72125; 74177; 80053; 82550; 84484; 85025; 85610; 85730; 87040; 87077; 87149; 93005; Q9967